=== PATIENT | male | born 1960 | race Caucasian/White ===

== ENCOUNTER 2020-09-15 23:29 | Emergency (ER) | payer OTHER ==
[~2020-09-15] VITALS: Ht 162.6 cm; Wt 85.0 kg
[2020-09-16] MEDS ORDERED: ASPIRIN 81MG TABLET PO ONE (00:30)
[2020-09-16] MEDS ORDERED: ACETAMINOPHEN 325MG TABLET PO ONE (00:30)
[2020-09-16 01:12] LABS: BASOPHILS % 0.4 % (0.0-2.0); EOSINOPHILS % 2.6 % (0.0-5.0); LYMPHOCYTES % 19.6 % (20.0-50.0); MEAN CORPUSCULAR HEMOGLOBIN 27.3 pg (28.0-32.0); MEAN CORPUSCULAR VOLUME 81.7 fL (80.0-94.0); MEAN PLATELET VOLUME 9.4 fl (7.4-10.4); MONOCYTES % 11.5 % (2.0-8.0); NEUTROPHILS % 65.9 % (40.0-76.0); PLATELET 165 x1000/uL (130-400); RED BLOOD CELL COUNT 4.77 mill/uL (4.7-6.1); RED CELL DISTRIBUTION WIDTH 14.8 % (11.6-14.6)
[2020-09-16 01:20] LABS: CHLORIDE 100 mEq/L (98-107)
[2020-09-16 01:26] LABS: CLARITY URINE CLEAR (CLEAR); COLOR URINE YELLOW (YELLOW); KETONES URINE NEGATIVE (NEGATIVE); LEUKOCYTE ESTERASE URINE NEGATIVE (NEGATIVE); NITRITE URINE NEGATIVE (NEGATIVE); OCCULT BLOOD URINE NEGATIVE (NEGATIVE); PH URINE 7.5 (4.5-8.0); PROTEIN URINE NEGATIVE (NEGATIVE); SPECIFIC GRAVITY URINE 1.015 (1.005-1.030)
[2020-09-16] MEDS ORDERED: DEXAMETHASONE 10 MG/ML VIAL IV ONE (02:15)
[2020-09-16] MEDS ORDERED: AZITHROMYCIN 500 MG in DEXT 5% WATER 250 ML IV ONE (02:15)
[2020-09-16] MEDS ORDERED: CEFTRIAXONE 1 G PREMIX 50 ML IV ONE (02:15)
[2020-09-16] MEDS ORDERED: IBUPROFEN 600MG TABLET PO NR (04:00)
[2020-09-16 09:27] VITALS: BP 130/76
== END 2020-09-16 08:10 | disposition short-term general hospital (02) ==
LOC: ER 23:29 → CANBEDREQ 09-16 08:10 → ER 09-16 08:10
DX: A41.9 Sepsis, unspecified organism (principal); R65.20 Severe sepsis without septic shock; R55 Syncope and collapse; R05 Cough; R50.9 Fever, unspecified; E11.9 Type 2 diabetes mellitus without complications; Z20.822 Contact with and (suspected) exposure to COVID-19
CPT/HCPCS: 36415; 71045; 80053; 81003; 83605; 83880; 84145; 84484; 85025; 87040; 87086; 93005; 96365; 96375; 99291; C9803; J0456; J0696; J1100; J7060; U0003; U0005; Z7610

== ENCOUNTER 2021-01-16 14:25 | Emergency (ER) | payer OTHER ==
[~2021-01-16] VITALS: Ht 162.6 cm; Wt 73.0 kg
[2021-01-16] MEDS ORDERED: SODIUM CHLORIDE 0.9% 1,000 ML IV ONE (15:15)
[2021-01-16 15:21] LABS: CHLORIDE 100 mEq/L (98-107)
[2021-01-16 15:25] LABS: BASOPHILS % 0.3 % (0.0-2.0); EOSINOPHILS % 0.8 % (0.0-5.0); HEMATOCRIT. 36.6 % (42.0-52.0); HEMOGLOBIN. 11.8 g/dL (14.0-18.0); LYMPHOCYTES % 13.9 % (20.0-50.0); MEAN CORPUSCULAR HEMOGLOBIN 25.9 pg (28.0-32.0); MONOCYTES % 4.7 % (2.0-8.0); NEUTROPHILS % 80.3 % (40.0-76.0); PLATELET 198 x1000/uL (130-400); RED BLOOD CELL COUNT 4.57 mill/uL (4.7-6.1); RED CELL DISTRIBUTION WIDTH 15.7 % (11.6-14.6)
[2021-01-16 17:39] VITALS: BP 115/71
== END 2021-01-16 17:39 | disposition home or self-care (01) ==
LOC: ER 14:25
DX: R07.89 Other chest pain (principal); I10 Essential (primary) hypertension; E11.9 Type 2 diabetes mellitus without complications; F41.9 Anxiety disorder, unspecified; F12.10 Cannabis abuse, uncomplicated
CPT/HCPCS: 36415; 71045; 80053; 84484; 85025; 93005; 99285; J7030